=== PATIENT | female | born 1945 | race Caucasian/White ===

== ENCOUNTER 2016-05-18 07:52 | Outpatient (CLI) | payer MEDICARE, OTHER | END 2016-05-18 23:59 | disposition home or self-care (01) | LOC: RAD 07:52 | PROVIDERS: ATTEND Family Medicine | DX: Z01.818 Encounter for other preprocedural examination (principal) | CPT/HCPCS: 71020-TC ==

== ENCOUNTER 2017-01-11 07:42 | Outpatient (CLI) | payer MEDICARE, OTHER ==
[2017-01-11 08:40] LABS: CALCIUM, SERUM 8.5 mg/dL (8.5-10.1); CARBON DIOXIDE 27 mmol/L (21-32); CHLORIDE 107 mmol/L (98-107); CREATININE 0.7 mg/dL (0.6-1.3); GLUCOSE 96 mg/dL (74-106); POTASSIUM 3.8 mmol/L (3.5-5.1); SODIUM SERUM 141 mmol/L (136-145); UREA NITROGEN, BLOOD 10 mg/dL (7-18)
[2017-01-11 08:46] LABS: CHOLESTEROL 198 mg/dL (<200); HDL CHOLESTEROL 36 mg/dL (40-60); LDL 133 mg/dL (0-99); TRIGLYCERIDES 186 mg/dL (30-150)
== END 2017-01-11 23:59 | disposition home or self-care (01) ==
LOC: LAB 07:42
PROVIDERS: ATTEND Internal Medicine Interventional Cardiology
DX: E78.5 Hyperlipidemia, unspecified (principal); R07.9 Chest pain, unspecified
CPT/HCPCS: 36415; 80048-TC; 80061-TC

== ENCOUNTER 2017-01-12 11:00 | Outpatient (CLI) | payer MEDICARE, OTHER ==
[2017-01-12] MEDS ORDERED: METOPROLOL TARTRATE INJ 5 MG/5 ML AMPUL ONE (11:52)
[2017-01-12] MEDS ORDERED: NITROGLYCERIN 4.9 GM SPRAY ONE (12:35)
== END 2017-01-12 23:59 | disposition home or self-care (01) ==
LOC: CARD 11:00
PROVIDERS: ATTEND Internal Medicine Interventional Cardiology
DX: I25.10 Atherosclerotic heart disease of native coronary artery without angina pectoris (principal); I70.0 Atherosclerosis of aorta; M51.04 Intervertebral disc disorders with myelopathy, thoracic region; M43.8X4 Other specified deforming dorsopathies, thoracic region; K44.9 Diaphragmatic hernia without obstruction or gangrene; I10 Essential (primary) hypertension; E78.5 Hyperlipidemia, unspecified; Z98.82 Breast implant status
CPT/HCPCS: 75574; 93005; J3490